=== PATIENT | female | born 1985 | race Asian ===

== ENCOUNTER → 2017-08-21 | Outpatient (CLI) | payer OTHER ==
[~2017-08-21] MED LIST: PRENTAB65 PO
[2017-08-21 15:42] LABS: BASO % 0.4 %; BASO ABS # 0.04 K/uL (0-0.2); EOS % 3.6 %; EOS ABS # 0.36 K/uL (0-0.5); HEMATOCRIT 37.2 % (37-47); HEMOGLOBIN 12.9 g/dL (12.0-16.0); IG# 0.02 K/uL (0.00-0.02); LYMPH % 25.5 %; LYMPH ABS # 2.58 K/uL (1.2-3.4); MEAN CELL VOLUME 85.7 fL (80-100); MEAN CORPUSCULAR HEMOGLOBIN 29.7 pg (25-34); MEAN CORPUSCULAR HGB CONC 34.7 g/dl (32-36); MEAN PLATELET VOLUME 9.2 fL (7.4-10.4); MONO % 4.2 %; MONO ABS # 0.43 K/uL (0.11-0.59); NEUT % 66.1 %; NEUT ABS # 6.69 K/uL (1.4-6.5); PLATELET COUNT 261 K/uL (130-400); RED CELL DISTRIBUTION WIDTH CV 12.7 % (11.5-14.5); RED CELL DISTRIBUTION WIDTH SD 39.7 fL (36.4-46.3); WHITE BLOOD COUNT 10.12 K/uL (4.8-10.8)
== END | disposition home or self-care (01) ==
LOC: C.LAB1850 14:29
PROVIDERS: ATTEND Obstetrics & Gynecology
DX: Z34.91 Encounter for supervision of normal pregnancy, unspecified, first trimester (principal); Z3A.00 Weeks of gestation of pregnancy not specified

== ENCOUNTER → 2017-08-21 | Outpatient (CLI) | payer OTHER | END | disposition home or self-care (01) | LOC: C.PAPS 08:03 | PROVIDERS: ATTEND Obstetrics & Gynecology | DX: Z01.411 Encounter for gynecological examination (general) (routine) with abnormal findings (principal); R87.610 Atypical squamous cells of undetermined significance on cytologic smear of cervix (ASC-US) ==

== ENCOUNTER → 2017-10-08 | Outpatient (CLI) | payer OTHER | END | disposition home or self-care (01) | LOC: C.LAB1850 09:13 | PROVIDERS: ATTEND Obstetrics & Gynecology | DX: Z34.82 Encounter for supervision of other normal pregnancy, second trimester (principal) ==

== ENCOUNTER 2017-10-29 08:58 | Emergency (ER) | payer OTHER ==
[~2017-10-29] VITALS: Ht 160 cm; Wt 54.0 kg
[2017-10-29 09:00] VITALS: TEMP 37; Ht 160 cm; Wt 54.0 kg
[2017-10-29] MEDS ORDERED: ONDANSETRON INJ 2 MG/ML 2 ML VIAL IV STA (09:21)
[2017-10-29] MEDS ORDERED: SODIUM CHLORIDE 0.9% 1000ML 1,000 ML IV STA ×2 (09:21→12:19)
--- NOTE | 2017-10-29 09:21 | EMERGENCY ROOM VISIT NOTE ---
History Report prepared by Justus: Jacob Winters Under the Supervision of: Dr. Emanuel Angelo M.D. First contact with patient: 09:12 Chief Complaint: VOMITING Stated Complaint: VOMTING, DIARRHEA, FEVER, CRAMPING, MUSCULAR PAIN History of Present Illness The patient is a 32 year old female who is 19-weeks who presents to the Emergency Room with complaints of a persistent illness that started last night. She states that she has been nauseous, with episodes of vomiting and diarrhea. The patient says that she has severe upper abdominal pain. She notes that she has not taken any medications for this. She denies any runny nose, sore throat, chest pain, notable swelling, abnormal vaginal bleeding or discharge, urinary symptoms, or hematochezia. The patient says that she is still feeling her baby kick and move. She notes no history of abdominal surgeries. Source of History: patient Onset: Last night Position: other (global) Symptom Intensity: 19-weeks Quality: other (illness) Timing: other (persistent) Associated Symptoms: + nausea, + vomiting, + abdominal pain, + diarrhea, No sorethroat (or runny nose), No chest pain, No hematochezia, No urinary symptoms Note: Associated symptoms: Denies vaginal bleeding or discharge. Review of Systems See HPI for pertinent positives & negatives. A total of 10 systems reviewed and were otherwise negative. Past Medical & Surgical Medical Problems: (1) Normal labor Family History No pertinent family history Social History Smoking Status: Never Smoker Drug Use: none Marital Status: Housing Status: lives with family Occupation Status: employed Current/Historical Medications No Active Prescriptions or Reported Meds Allergies Coded Allergies: Dust (Verified Allergy, Unknown, SHORTNESS OF BREATH, 07/05/16) Physical Exam Vital Signs Date Time Temp Pulse Resp B/P (MAP) Pulse Ox O2 Delivery O2 Flow Rate FiO2 10/29/17 13:57 84 16 102/60 98 10/29/17 12:10 84 16 102/60 98 Room Air 10/29/17 09:49 92 20 99/59 100 Room Air 10/29/17 09:00 37.0 104 16 105/69 97 Room Air Physical Exam GENERAL: Patient is uncomfortable appearing and in mild acute distress. EYES: No scleral icterus, unremarkable pupils. ENT: Mucous membranes dry, no nasal congestion. NECK: No masses appreciated, no meningismus, trachea is midline. RESPIRATORY: No dyspnea. Clear to auscultation and equal bilaterally. No wheeze , no rhonchi. CARDIOVASCULAR: Regular rate and rhythm. No murmurs, rubs, gallops appreciated. GASTROINTESTINAL: Abdomen soft, epigastric and right upper quadrant tenderness to palpation, no peritonitis. Bowel sounds positive. Fundus consistent with dates. BACK: No midline tenderness, no CVA tenderness EXTREMITIES: Normal motion all extremities, no cyanosis, no edema. NEUROLOGIC: Alert and oriented, no acute motor or sensory deficits, no focal weakness, cranial nerves grossly intact. SKIN: No rash, no jaundice, no diaphoresis. Medical Decision & Procedures ER Provider Diagnostic Interpretation: US results are stated below per my interpretation and the radiologist's interpretation. GALLBLADDER-ABD LIMITED CLINICAL HISTORY: 32 years-old Female presenting with RUQ pain vomiting, 19 wk preg.. TECHNIQUE: Real-time grayscale and limited color Doppler ultrasound imaging of the abdomen limited to the right upper quadrant was performed. COMPARISON: None. FINDINGS: Pancreas: Visualized portions of the pancreatic head and body normal. Liver: Normal echogenicity and echotexture. The liver measures 16.5 cm in maximal sagittal dimension. No sonographic evidence of hepatic mass. Main portal vein patent with normal directional flow. Biliary: No intrahepatic biliary ductal dilatation. Common bile duct measures up to 3 mm in diameter. Gallbladder: No evidence of gallstones, gallbladder wall thickening, gallbladder distention, or pericholecystic fluid or inflammatory change. Right kidney: Normal in appearance. No hydronephrosis. Ascites: None. Other: None. IMPRESSION: No cholelithiasis or biliary ductal dilatation. Electronically signed by: Gonzalez Gardner M.D. 10/29/2017 11:35 AM Dictated Date/Time: 10/29/2017 11:34 AM Laboratory Results 10/29/17 09:30 Red Blood Count 4.05, Mean Corpuscular Volume 86.7, Mean Corpuscular Hemoglobin 30.6, Mean Corpuscular Hemoglobin Concent 35.3, Mean Platelet Volume 8.6, Neutrophils (%) (Auto) 92.3, Lymphocytes (%) (Auto) 4.4, Monocytes (%) (Auto) 2.7, Eosinophils (%) (Auto) 0.2, Basophils (%) (Auto) 0.1, Neutrophils # (Auto) 8.83, Lymphocytes # (Auto) 0.42, Monocytes # (Auto) 0.26, Eosinophils # (Auto) 0.02, Basophils # (Auto) 0.01 10/29/17 09:30 Test 10/29/17 09:30 10/29/17 13:28 White Blood Count 9.57 K/uL (4.8-10.8) Red Blood Count 4.05 M/uL (4.2-5.4) Hemoglobin 12.4 g/dL (12.0-16.0) Hematocrit 35.1 % (37-47) Mean Corpuscular Volume 86.7 fL (80-100) Mean Corpuscular Hemoglobin 30.6 pg (25-34) Mean Corpuscular Hemoglobin Concent 35.3 g/dl (32-36) Platelet Count 196 K/uL (130-400) Mean Platelet Volume 8.6 fL (7.4-10.4) Neutrophils (%) (Auto) 92.3 % Lymphocytes (%) (Auto) 4.4 % Monocytes (%) (Auto) 2.7 % Eosinophils (%) (Auto) 0.2 % Basophils (%) (Auto) 0.1 % Neutrophils # (Auto) 8.83 K/uL (1.4-6.5) Lymphocytes # (Auto) 0.42 K/uL (1.2-3.4) Monocytes # (Auto) 0.26 K/uL (0.11-0.59) Eosinophils # (Auto) 0.02 K/uL (0-0.5) Basophils # (Auto) 0.01 K/uL (0-0.2) RDW Standard Deviation 43.1 fL (36.4-46.3) RDW Coefficient of Variation 13.7 % (11.5-14.5) Immature Granulocyte % (Auto) 0.3 % Immature Granulocyte # (Auto) 0.03 K/uL (0.00-0.02) Anion Gap 9.0 mmol/L (3-11) Est Creatinine Clear Calc Drug Dose 136.0 ml/min Estimated GFR () > 150.0 Estimated GFR (Non- 129.9 BUN/Creatinine Ratio 29.9 (10-20) Calcium Level 8.3 mg/dl (8.5-10.1) Total Bilirubin 0.8 mg/dl (0.2-1) Direct Bilirubin 0.2 mg/dl (0-0.2) Aspartate Amino Transf (AST/SGOT) 10 U/L (15-37) Alanine Aminotransferase (ALT/SGPT) 13 U/L (12-78) Alkaline Phosphatase 31 U/L (45-117) Total Protein 7.1 gm/dl (6.4-8.2) Albumin 3.2 gm/dl (3.4-5.0) Lipase 85 U/L (73-393) Urine Color YELLOW Urine Appearance CLEAR (CLEAR) Urine pH 6.0 (4.5-7.5) Urine Specific [place] 1.031 (1.000-1.030) Urine Protein TRACE (NEG) Urine Glucose (UA) 1+ (NEG) Urine Ketones 4+ (NEG) Urine Occult Blood NEG (NEG) Urine Nitrite NEG (NEG) Urine Bilirubin NEG (NEG) Urine Urobilinogen NEG (NEG) Urine Leukocyte Esterase NEG (NEG) Urine WBC (Auto) 1-5 /hpf (0-5) Urine RBC (Auto) 0-4 /hpf (0-4) Urine Hyaline Casts (Auto) 1-5 /lpf (0-5) Urine Epithelial Cells (Auto) >30 /lpf (0-5) Urine Bacteria (Auto) NEG (NEG) Laboratory results as reviewed by me. Medications Administered Medications (Trade) Dose Ordered Sig/Mary Route Start Time Stop Time Status Last Admin Dose Admin Sodium Chloride 1,000 ml @ 999 mls/hr Q1H1M STAT IV 10/29/17 09:21 10/29/17 10:21 DC 10/29/17 09:21 999 MLS/HR Ondansetron HCl (Zofran Inj) 4 mg NOW STAT IV 10/29/17 09:21 10/29/17 09:22 DC 10/29/17 09:45 4 MG Sodium Chloride 1,000 ml @ 999 mls/hr Q1H1M STAT IV 10/29/17 12:19 10/29/17 13:19 DC 10/29/17 12:35 999 MLS/HR Ondansetron HCl (ZOFRAN ODT 4MG Home Pack) 1 homepack UD ONCE PO 10/29/17 13:45 10/29/17 13:46 DC 10/29/17 13:49 1 HOMEPACK ED Course 0915: The patient was evaluated in room A11B. A complete history and physical exam was performed. 0939: I performed a bedside US, which revealed an intrauterine with a heart rate of 158 with positive movement. 1107: The patient is at ultrasound. 1237: I reevaluated the patient and she feels much better but still has not urinated. 1338: Reevaluated the patient and she feels much better and would like to go home. She feels comfortable going home. Discussed results and discharge instructions: she verbalized understanding and agreement. The patient is ready for discharge. Medical Decision Differential: Cholecystitis, Gallbladder disfunction, Hepatic Disfunction, Gastritis/PUD, Pancreatitis, ACS, Aortic Pathology, amongst other pathologies entertained. Very pleasant 32 yr old female with nausea, vomiting, and diarrhea at 19wks . She has some TTP over RUQ/Epi and thus US done which was negative for GB. My bedside US fetus looks good. LFT/Lipase look good. No Urinary symptoms though is quite dehydrated thus requiring 2nd L NSS before urinating ( Ketones expected). She is comfortable going home and now at bedside are both agreeable with this. She is not septic and does not have surgical abdomen. Symptom have resolved with zofran and IV fluids. Home with to go zofran PRN. Breathing comfortably and looks well. Medication Reconcilliation Current Medication List: was personally reviewed by me Blood Pressure Screening Patient's blood pressure: Normal blood pressure Impression Primary Impression: Gastroenteritis Additional Impressions: Dehydration Scribe Attestation The scribe's documentation has been prepared under my direction and personally reviewed by me in its entirety. I confirm that the note above accurately reflects all work, treatment, procedures, and medical decision making performed by me. Departure Information Dispostion Home / Self-Care Prescriptions No Active Prescriptions or Reported Meds Referrals No Doctor, Assigned (PCP) Patient Instructions Dehydration, My [facility] Health Problem Qualifiers
[2017-10-29 09:41] LABS: BASO % 0.1 %; BASO ABS # 0.01 K/uL (0-0.2); EOS % 0.2 %; EOS ABS # 0.02 K/uL (0-0.5); HEMATOCRIT 35.1 % (37-47); HEMOGLOBIN 12.4 g/dL (12.0-16.0); IG# 0.03 K/uL (0.00-0.02); LYMPH % 4.4 %; LYMPH ABS # 0.42 K/uL (1.2-3.4); MEAN CELL VOLUME 86.7 fL (80-100); MEAN CORPUSCULAR HEMOGLOBIN 30.6 pg (25-34); MEAN CORPUSCULAR HGB CONC 35.3 g/dl (32-36); MEAN PLATELET VOLUME 8.6 fL (7.4-10.4); MONO % 2.7 %; MONO ABS # 0.26 K/uL (0.11-0.59); NEUT % 92.3 %; NEUT ABS # 8.83 K/uL (1.4-6.5); PLATELET COUNT 196 K/uL (130-400); RED CELL DISTRIBUTION WIDTH CV 13.7 % (11.5-14.5); RED CELL DISTRIBUTION WIDTH SD 43.1 fL (36.4-46.3); WHITE BLOOD COUNT 9.57 K/uL (4.8-10.8)
[2017-10-29 09:58] LABS: ALBUMIN 3.2 gm/dl (3.4-5.0); ALT/SGPT 13 U/L (12-78); BLOOD UREA NITROGEN 15 mg/dl (7-18); CALCIUM 8.3 mg/dl (8.5-10.1); CARBON DIOXIDE 19 mmol/L (21-32); GLUCOSE 112 mg/dl (70-99); LIPASE 85 U/L (73-393); POTASSIUM 3.3 mmol/L (3.5-5.1); SODIUM 135 mmol/L (136-145)
[2017-10-29 10:01] LABS: ALKALINE PHOSPHATASE 31 U/L (45-117); AST/SGOT 10 U/L (15-37); TOTAL PROTEIN 7.1 gm/dl (6.4-8.2)
--- NOTE | 2017-10-29 11:37 | DIAGNOSTIC IMAGING REPORT ---
GALLBLADDER-ABD LIMITED CLINICAL HISTORY: 32 years-old Female presenting with RUQ pain vomiting, 19 wk preg.. TECHNIQUE: Real-time grayscale and limited color Doppler ultrasound imaging of the abdomen limited to the right upper quadrant was performed. COMPARISON: None. FINDINGS: Pancreas: Visualized portions of the pancreatic head and body normal. Liver: Normal echogenicity and echotexture. The liver measures 16.5 cm in maximal sagittal dimension. No sonographic evidence of hepatic mass. Main portal vein patent with normal directional flow. Biliary: No intrahepatic biliary ductal dilatation. Common bile duct measures up to 3 mm in diameter. Gallbladder: No evidence of gallstones, gallbladder wall thickening, gallbladder distention, or pericholecystic fluid or inflammatory change. Right kidney: Normal in appearance. No hydronephrosis. Ascites: None. Other: None. IMPRESSION: No cholelithiasis or biliary ductal dilatation. Electronically signed by: Gonzalez Gardner M.D. 10/29/2017 11:35 AM Dictated Date/Time: 10/29/2017 11:34 AM
[2017-10-29] MEDS ORDERED: ONDANSETRON HOME PACK 4MG OD TAB PO ONE (13:45)
[2017-10-29 13:57] VITALS: BP 102/60; PULSE 84; O2SAT 98
== END 2017-10-29 13:57 | disposition home or self-care (01) ==
LOC: C.EDB 09:00 → C.EDA 13:57
DX: K52.9 Noninfective gastroenteritis and colitis, unspecified (principal); E86.0 Dehydration; Z34.90 Encounter for supervision of normal pregnancy, unspecified, unspecified trimester